=== PATIENT | female | born 1930 | race Caucasian/White ===

== ENCOUNTER → 2017-07-17 | Outpatient (CLI) | payer OTHER | LOC: FIMAGING 13:37 | PROVIDERS: ATTEND Internal Medicine Hematology & Oncology | DX: Z12.31 Encounter for screening mammogram for malignant neoplasm of breast (principal); Z85.3 Personal history of malignant neoplasm of breast | CPT/HCPCS: G0202 ==

== ENCOUNTER 2018-01-15 14:58 | Observation (INO) | payer OTHER ==
[2018-01-15 16:42] LABS: PLATELET COUNT 113 10^3/uL (150-400)
[2018-01-15] MEDS ORDERED: ACETAMINOPHEN 325 MG TAB PO PRN (18:02)
[2018-01-15] MEDS ORDERED: ONDANSETRON 4 MG/2 ML VIAL IVP PRN (18:02)
[2018-01-15] MEDS ORDERED: IPRATROPIUM/ALBUTEROL 3 ML DEYVIAL IH PRN (18:03)
[2018-01-15] MEDS ORDERED: NS 1,000 ML IV SCH (18:15)
--- NOTE | 2018-01-15 19:21 | GHP ---
[f rep st] HISTORY AND PHYSICAL DATE OF ADMISSION: 01/15/2018 CHIEF COMPLAINT: Cough. HISTORY: The patient is an 87-year-old female who has had a cold since Friday, with a productive cou gh with pink to yellow sputum. She is extremely fatigued and has had poor balance. She fell Friday night while watering her plants, although she did not injure herself. She is getting progressively more weak and she does live alone with no local family support. She denies any fever or chills. She has had some loose stool with nausea and she is forcing herself to eat through the nausea. There sommer s been no chest pain, no shortness of breath. She was directly admitted from her primary care provid er's office, Dr. April Castaneda, today. It was noted there that her oxygen saturations drop with exert ion. There was concern for her safety, living independently, given her falls and severe illness. PAST MEDICAL HISTORY: 1. Vertebral artery dissection. 2. Hypertension. 3. Qlzwntv-Sdcyj-Gmssh. 4. Breast cancer, status post lumpectomy. 5. Multinodular goiter. PAST SURGICAL HISTORY: Ruptured appendectomy, right ankle surgery. MEDICATIONS: Please see computer record for full, detailed list. ALLERGIES: No known drug allergies. SOCIAL HISTORY: No smoking. Social alcohol. She lives alone. Her last year. They sommer ve 3 children, the closest 1 lives in [place]. Code status is DNR. REVIEW OF SYSTEMS: Complete review of systems obtained. Review of systems negative on constitutiona l, HEENT, GI, pulmonary, cardiovascular, , hematology, skin, muscular, endocrine, psych except for positives and negatives as in HPI. FAMILY HISTORY: Reviewed, noncontributory to presenting complaint. PHYSICAL EXAMINATION: GENERAL: Well-developed, well-nourished female, in no acute distress. VITAL SIGNS: Temperature is 36.7, pulse 77, blood pressure 178/83, saturating 91% on room air. HEENT: Ey e examination: Normal conjunctivae. Pupils equal, round, reactive to light. ENT: Normal ears, nos e. Hearing is intact. No loose teeth. Oropharynx: Moist. NECK: Trachea midline. No thyromegaly . CHEST: Normal effort. LUNGS: Crackles to the left base. No wheeze. CARDIOVASCULAR: Regular r ate and rhythm. No murmur. No lower extremity edema. ABDOMEN: Soft, nontender. No hepatosplenome chucky. SKIN: Warm, dry, intact. No rash. MUSCULOSKELETAL: No cyanosis or clubbing. Strength 5/5, upper and lower extremities. NEUROLOGIC: Cranial nerves intact. Normal sensation to light touch. PSYCH: Alert, oriented x3. Normal affect. Normal judgment. Normal insight. Normal memory. LABORATORY DATA: White count 2.7, hematocrit 37.3, platelets 113. Sodium 139, potassium 3.7, chlori de 107, bicarb 23, BUN 10, creatinine 0.5, glucose 81. LFTs are negative. Chest x-ray reviewed by connor croft, my personal interpretation is no infiltrate. This case was discussed with Dr. April Castaneda, [facility] doctor, regarding office visit today and need for hospitalization. Outpatient records from [facility] were reviewed including outpatient problem list and progress note from today, which was detai led above. ASSESSMENT/PLAN: 1. Influenza A. Her respiratory PCR has just come back positive. I do not think there is a bacteri al superinfection component at this time. We will hold off on any further antibiotics. We will star t her on Tamiflu. 2. Weakness and falls with decreased balance secondary to her infection. Will consult [employer] apy/Occupational Therapy. 3. History of vertebral artery dissection. Still await medication reconciliation form to be complet ed. I believe she is now on antiplatelet drugs. 4. Hypertension. Again, once home medications are reconciled, will resume. CODE STATUS: [id number]. ADMISSION STATUS: 1. Will admit to observation. Reevaluate tomorrow regarding ongoing need for hospitalization. 2. DVT prophylaxis. She is at high risk. Will place on subcu Lovenox. /[id number]/MODL
[2018-01-15] MEDS: OSELTAMIVIR PHOSPHATE 75 MG CAP PO SCH (19:49)
[2018-01-15] MEDS ORDERED: CLOPIDOGREL BISULFATE 75 MG TAB PO SCH (21:00)
[2018-01-15] MEDS ORDERED: CHOLECALCIFEROL VIT D3 1,000 UNITS TAB PO SCH (21:00)
[2018-01-16 06:23] LABS: PLATELET COUNT 97 10^3/uL (150-400)
[2018-01-16] MEDS ORDERED: PRESERVISION AREDS2 FORMULA EYE VIT 1 EACH PO SCH (08:00)
[2018-01-16] MEDS: OSELTAMIVIR PHOSPHATE 75 MG CAP PO SCH (08:10)
[2018-01-16] MEDS ORDERED: amLODIPine BESYLATE 5 MG TAB PO SCH (09:00)
[2018-01-16] MEDS ORDERED: CHOLECALCIFEROL VIT D3 1,000 UNITS TAB PO SCH (09:00)
[2018-01-16] MEDS ORDERED: ATORVASTATIN CALCIUM 10 MG TAB PO SCH (09:00)
[2018-01-16] MEDS ORDERED: ENOXAPARIN 40 MG/0.4 ML SYR SC SCH (09:00)
[2018-01-16] MEDS ORDERED: TAMOXIFEN CITRATE 10 MG TAB PO SCH (09:00)
--- NOTE | 2018-01-16 12:42 | ASMTCMCOM ---
CM Note CM Note Notes: Spoke w/MD, pt needs PT/TO. Met with pt and son, would like referral sent to [facility], Jeimy notified. Pt's son will stay with her over the weekend. DC Plan: Home care/ [facility] (PT/OT) Date Signed: 01/16/2018 12:41 PM Electronically Signed By:Dilia De Los Santos RN
--- NOTE | 2018-01-16 12:44 | ASMTLACE ---
ELIE Length of stay for Answers: 1 day current admission Comorbidities - select Answers: Other Notes: HTN all that apply # of Emergency department Answers: 0 visits in the last 6 months Score: 2 Date Signed: 01/16/2018 12:44 PM Electronically Signed By:Dilia De Los Santos RN
[2018-01-16 12:53] VITALS: BP 156/67
[2018-01-16] MEDS ORDERED: predniSONE 20 MG TAB PO ONE (12:56)
--- NOTE | 2018-01-16 13:01 | PDIAF ---
- Diagnosis Diagnosis: influenza Code Status: Do Not Resuscitate - Medication Management Discharge Medications: Medications to Continue on Transfer Alendronate Sodium [Fosamax 70 MG (*)] 70 mg PO SA@0700 02/23/14 [Last Taken ] Ascorbic Acid [Vitamin C 500 mg (*)] 500 mg PO HS 02/23/14 [Last Taken 01/14/18] Calcium Carbonate/Vitamin D3 [CALCIUM 600 + VIT D TABLET] 1 each PO BID [Last Taken 01/15/18 08:00] Cholecalciferol Vit D3 [Vitamin D3 (*)] 2,000 units PO DAILY 02/23/14 [Last Taken 01/15/18 08:00] Multivitamins [Multivitamin (*)] 1 each PO DAILY 02/23/14 [Last Taken 01/15/18 08:00] Simvastatin [Zocor 20 mg] 20 mg PO HS 02/23/14 [Last Taken 01/14/18] Tamoxifen Citrate [Nolvadex 10 MG (*)] 20 mg PO DAILY 02/23/14 [Last Taken 01/15 08:00] Vit A/Vit C/Vit E/Zinc/Copper [Preservision Areds Softgel] 1 each PO BID [Last Taken 01/15/18 08:00] Cholecalciferol Vit D3 [Vitamin D3 (*)] 1,000 units PO HS 01/15/18 [Last Taken 01/14/18] Clopidogrel Bisulfate [Clopidogrel] 75 mg PO HS 01/15/18 [Last Taken 01/14/18] amLODIPine BESYLATE [Norvasc 5 mg (*)] 5 mg PO DAILY 01/15/18 [Last Taken ] Oseltamivir Phosphate [Tamiflu Oral Suspension] 30 mg PO BIDMEAL #8 ml 01/16/18 [Last Taken Unknown] predniSONE [Prednisone] 20 mg PO DAILY #6 tablet 01/16/18 [Last Taken Unknown] Discharge Medications: Refer to the Discharge Home Medication list for PRN reason. - Orders Services needed: Home Care, Physical Therapy, Occupational Therapy Home Care Face to Face: I certify that this patient was under my care and that I had the required [id number] encounter meeting the encounter requirements on the discharge day. My findings support the fact that the patient is homebound as defined in Home Care Face to Face Continued: [facility] Chapter 7 Medicare Benefits Manual 30.1.1 , The condition of the patient is such that there exists a normal inability to leave home and consequently, leaving home would require a considerable and taxing effort. Isolation Type: Droplet Isolation Diet Recommendation: no restrictions on diet Diet Texture: Regular Texture Diet Additional Instructions: Activity: as tolerated F/U: with PCP in one week - Follow Up Care Current Providers and Referrals: April Castaneda MD [Primary Care Provider] -
--- NOTE | 2018-01-16 13:04 | PDDCSUM ---
Discharge Summary Discharge Summary: 87 yo female admitted with influenza A. Now doing better. on RA. ready for d/c. Please see below DDX: #Influenza A Tamiflu steroid burst #Hypoxemia, resolved #weakness: improving, will have HHC, PT/OT #Dehydration, resolved Exam: NAD, RA AAOX3 RRR CTA B S/NT/ND NO LE EDEMA MEDS: SEE MED REC: TAMIFLU AND PREDNISONE BURST STARTED F/U: WITH PCP IN ONE WEEK PLAN WAS AGREED UPON BY PT AND HER SON. WE DID DISCUSS STAYING OVERNIGHT BUT SHE IS ON RA AND FEELS BETTER, SHE WANTS TO BE DISCHARGED. HER SON IS STAYING WITH HER THROUGH THE WEEKEND. HHC IS BEING SET UP TOTAL TIME SPENT ON D/C IS 35 MINS
[2018-01-16] MEDS ORDERED: OSELTAMIVIR 6 MG/ML UDSYR PO SCH (18:00)
== END 2018-01-16 14:34 | disposition home health service (06) ==
LOC: F3E 15:36 → INTOOBSV 15:36
PROVIDERS: ADMIT Internal Medicine; ATTEND Family Medicine
DX: J10.1 Influenza due to other identified influenza virus with other respiratory manifestations (principal); R09.02 Hypoxemia; R53.1 Weakness; E86.0 Dehydration; I10 Essential (primary) hypertension; E04.2 Nontoxic multinodular goiter; Z86.79 Personal history of other diseases of the circulatory system; Z85.3 Personal history of malignant neoplasm of breast; Z66 Do not resuscitate
CPT/HCPCS: 71046; 97161; 97166; G0378; G0379; G8978; G8979; G8980; G8987; G8988; G8989; J1650; J7512